=== PATIENT | female | born 1995 | race Caucasian/White ===

== ENCOUNTER → 2019-08-17 17:54 | Outpatient (BNVA) | payer SELFPAY | PROVIDERS: Visit Provider Nurse Practitioner | DX: R35.0 Frequency of micturition (principal); Z20.2 Contact with and (suspected) exposure to infections with a predominantly sexual mode of transmission | CPT/HCPCS: 81000; 87491; 87591; 87661 ==

== ENCOUNTER → 2019-09-21 12:34 | Outpatient (BNVA) | payer SELFPAY | PROVIDERS: Visit Provider Nurse Practitioner Family | DX: Z20.2 Contact with and (suspected) exposure to infections with a predominantly sexual mode of transmission (principal) | CPT/HCPCS: 87491; 87591 ==

== ENCOUNTER → 2019-12-06 09:50 | Outpatient (BNVA) | payer SELFPAY | PROVIDERS: Visit Provider Internal Medicine | DX: E03.9 Hypothyroidism, unspecified (principal) | CPT/HCPCS: 99203 ==

== ENCOUNTER 2021-05-31 06:33 | Outpatient (CLI) | payer OTHER, SELFPAY ==
--- NOTE | 2021-05-31 07:00 | US_ITS ---
WS: [id number] THYROID ULTRASOUND HISTORY: thyroid nodule COMPARISON: None available. Right lobe: 1.6 cm x 1.5 cm x 5.4 cm (w x ap x l). Volume: 6.6 cm3. RIGHT thyroid lobe is slightly larger than the LEFT. No masses or abnormal echogenicity. No echogenic foci or mass. Left lobe: 1.1 cm x 1.3 cm x 4.9 cm (w x ap x l). Volume: 3.5 cm3. Normal size and echotexture. No significant or dominant nodules are present. Isthmus: 0.3 cm. US/US thyroid [id number] IMPRESSION: Unremarkable thyroid ultrasound. No mass or echogenic focus.
== END 2021-05-31 06:34 | disposition home or self-care (01) ==
LOC: RAD 06:34
PROVIDERS: Visit Provider Internal Medicine
DX: E04.1 Nontoxic single thyroid nodule (principal); E03.9 Hypothyroidism, unspecified
CPT/HCPCS: 76536

== ENCOUNTER → 2021-12-31 15:40 | Outpatient (BNVA) | payer OTHER, SELFPAY | PROVIDERS: Visit Provider Internal Medicine | DX: E03.9 Hypothyroidism, unspecified (principal) | CPT/HCPCS: 84439; 84443 ==

== ENCOUNTER → 2022-06-16 08:00 | Outpatient (BNVA) | payer OTHER, SELFPAY | PROVIDERS: PCP Family Medicine; Visit Provider Obstetrics & Gynecology | DX: Z32.00 Encounter for pregnancy test, result unknown (principal); Z32.01 Encounter for pregnancy test, result positive | CPT/HCPCS: 81025 ==

== ENCOUNTER → 2022-07-11 13:02 | Outpatient (BNVA) | payer OTHER, SELFPAY | PROVIDERS: PCP Family Medicine; Visit Provider Obstetrics & Gynecology | DX: Z34.00 Encounter for supervision of normal first pregnancy, unspecified trimester (principal) | CPT/HCPCS: 80307; 84315; 87086 ==

== ENCOUNTER → 2022-07-25 12:33 | Outpatient (BNVA) | payer OTHER, SELFPAY | PROVIDERS: PCP Family Medicine; Visit Provider Obstetrics & Gynecology | DX: Z34.00 Encounter for supervision of normal first pregnancy, unspecified trimester (principal); Z3A.12 12 weeks gestation of pregnancy | CPT/HCPCS: 76801; 87491; 87591; 87661; 88175 ==

== ENCOUNTER → 2022-07-31 08:15 | Outpatient (BNVA) | payer OTHER, SELFPAY | PROVIDERS: PCP Family Medicine; Visit Provider Obstetrics & Gynecology | DX: Z34.00 Encounter for supervision of normal first pregnancy, unspecified trimester (principal) | CPT/HCPCS: 84443; 85027; 86592; 86762; 86803; 86850; 86900; 87340; 87806 ==

== ENCOUNTER → 2022-08-22 12:54 | Outpatient (BNVA) | payer OTHER, SELFPAY | PROVIDERS: PCP Family Medicine; Visit Provider Obstetrics & Gynecology | DX: Z34.90 Encounter for supervision of normal pregnancy, unspecified, unspecified trimester (principal) | CPT/HCPCS: 84315; 87086 ==

== ENCOUNTER → 2022-09-17 14:07 | Outpatient (BNVA) | payer OTHER, SELFPAY | PROVIDERS: PCP Family Medicine; Visit Provider Obstetrics & Gynecology | DX: Z34.92 Encounter for supervision of normal pregnancy, unspecified, second trimester (principal); Z3A.20 20 weeks gestation of pregnancy | CPT/HCPCS: 76805 ==

== ENCOUNTER 2022-09-24 09:58 | Outpatient (CLI) | payer OTHER, SELFPAY ==
[2022-09-24 10:45] LABS: Free T4 Free Thyroxine 1.05 ng/dL (0.82-1.77)
[2022-09-24 13:15] LABS: Thyroid Stimulating Hormone 1.57 uIU/mL (0.27-4.20)
== END 2022-09-24 09:59 | disposition home or self-care (01) ==
PROVIDERS: PCP Family Medicine; Visit Provider Internal Medicine
DX: E03.9 Hypothyroidism, unspecified (principal)
CPT/HCPCS: 36415; 84315; 84439; 84443

== ENCOUNTER → 2022-10-15 15:43 | Outpatient (BNVA) | payer OTHER, SELFPAY | PROVIDERS: PCP Family Medicine; Visit Provider Obstetrics & Gynecology | DX: Z34.92 Encounter for supervision of normal pregnancy, unspecified, second trimester (principal); Z3A.24 24 weeks gestation of pregnancy | CPT/HCPCS: 76816 ==

== ENCOUNTER → 2022-11-11 14:30 | Outpatient (BNVA) | payer OTHER, SELFPAY | PROVIDERS: PCP Family Medicine; Visit Provider Obstetrics & Gynecology | DX: Z34.00 Encounter for supervision of normal first pregnancy, unspecified trimester (principal) | CPT/HCPCS: 82950; 84315; 85025 ==

== ENCOUNTER → 2022-11-25 08:00 | Outpatient (BNVA) | payer OTHER, SELFPAY | PROVIDERS: PCP Family Medicine; Visit Provider Obstetrics & Gynecology | DX: Z34.00 Encounter for supervision of normal first pregnancy, unspecified trimester (principal) | CPT/HCPCS: 82951; 82952; 84315 ==

== ENCOUNTER → 2023-01-06 15:39 | Outpatient (BNVA) | payer OTHER, SELFPAY | PROVIDERS: PCP Family Medicine; Visit Provider Obstetrics & Gynecology | DX: Z34.00 Encounter for supervision of normal first pregnancy, unspecified trimester (principal) | CPT/HCPCS: 84315; 87081 ==

== ENCOUNTER → 2023-01-20 08:00 | Outpatient (BNVA) | payer OTHER, SELFPAY | PROVIDERS: PCP Family Medicine; Visit Provider Obstetrics & Gynecology | DX: Z34.00 Encounter for supervision of normal first pregnancy, unspecified trimester (principal) | CPT/HCPCS: 81000 ==

== ENCOUNTER 2023-01-29 10:23 | Outpatient (CLI) | payer OTHER, SELFPAY ==
[2023-01-29 11:37] LABS: Thyroid Stimulating Hormone 1.63 uIU/mL (0.27-4.20)
== END 2023-01-29 10:24 | disposition home or self-care (01) ==
LOC: LAB 10:23
PROVIDERS: PCP Family Medicine; Visit Provider Internal Medicine
DX: E03.9 Hypothyroidism, unspecified (principal)
CPT/HCPCS: 36415; 84439; 84443

== ENCOUNTER 2023-02-01 13:49 | Outpatient (CLI) | payer OTHER, SELFPAY ==
[2023-02-01 13:50] VITALS: BMI 29.8
[2023-02-01 13:55] VITALS: BP 124/69; PULSE 83
[2023-02-01 14:18] VITALS: RESP 15
[2023-02-01 14:25] VITALS: BP 111/59; PULSE 85
[2023-02-01 14:42] VITALS: BP 111/59; PULSE 85
== END 2023-02-01 14:42 | disposition home or self-care (01) ==
LOC: OPOB 13:50 → OBGYN 13:51
PROVIDERS: PCP Family Medicine; Visit Provider Obstetrics & Gynecology
DX: O36.8190 Decreased fetal movements, unspecified trimester, not applicable or unspecified (principal); Z3A.00 Weeks of gestation of pregnancy not specified
CPT/HCPCS: 59025; 99211

== ENCOUNTER 2023-02-10 08:16 | Inpatient (IN) | payer OTHER, SELFPAY ==
[2023-02-10] VITALS (50 sets, daily range): BP systolic 93–121; BP diastolic 55–85; PULSE 69–139; RESP 16–18; TEMP 36–37.1; O2SAT 98–100; BMI 29.8
--- NOTE | 2023-02-10 09:10 | P.HP_ITS ---
Providers/Chief Complaint 2 Admitting Physician: Lucio Ceballos MD Primary PET CARE ASSISTANT: Lucio Ceballos MD Primary Care Provider: Suha Blackburn MD Chief Complaint: induction of labor at 41 weeks gestation HPI PET CARE ASSISTANT History of Present Illness 27 y.o. G1 EDC February 02, 2023 At 41 w 1 d No complications Admitted for induction of labor No c/o + active movements Present Details : 1 Para: 0 Labs Rubella: Immune RPR: Negative GBS: Negative Medications/Allergies Home Medications Medication Instructions Recorded Confirmed Last Taken Type buspirone 5 mg tablet 5 mg PO BID PRN anxiety #60 tabs 10/02/22 02/03/23 Unknown Rx prenat.vits,stacey,bsi-vbdr-lcuao 1 tab PO DAILY #30 tabs 10/22/22 02/03/23 Unknown Rx levothyroxine 25 mcg tablet 25 mcg PO DAILY 30 days #30 tabs 12/25/22 02/03/23 Unknown Rx Allergies Allergy/AdvReac Type Severity Reaction Status Date / Time No Known Allergies Allergy Verified 02/03/23 11:23 PFSH PET CARE ASSISTANT 2 PFSH: Medical History Psychiatric care History of eating disorder Hypothyroidism Surgical History No history of previous surgery Family History Mother No problems noted. Denies family history of Colon cancer Ovarian cancer Diabetes Heart disease Hypercholesteremia Breast cancer Hypertension Uterine cancer Thyroid disease Stroke Social History Smoking and tobacco/nicotine status: never used tobacco/nicotine Alcohol intake: never History History History 2 1 Term 0 Miscarriages/Ectopic Living Children Care ALYSHA Calculator 2 Estimated Delivery Date Method Current WG Current Estimate 02/02/23 LMP (Certain) 41w 2d Vitals/I&O/Wt Last Vital Signs Temp 98.1 F 02/11/23 01:05 Pulse 90 02/11/23 01:05 Resp 18 02/11/23 01:05 BP 101/66 02/11/23 01:05 Pulse Ox 98 02/11/23 01:05 O2 Del Method Room Air 02/11/23 01:05 02/10/23 02/10/23 02/11/23 14:59 22:59 06:59 Intake Total 2676.29 / 2676.29 Output Total 425 / 425 Balance 2251.29 / 2251.29 Weight last 48 hrs Weight 185 lb Physical Exam 2 Narrative: Weight 184 lbs; 5?6? VS normal Comfortable Lungs: clear Cor: RRR FH 38 cm, cephalic FHTs normal Cx: 1 cm / 50% / -4 / posterior Ext: no edema External monitor: heart tracing good variability, + accelerations Urinary Catheter Management: Silva: Cath Placed During This Visit: yes, but has since been removed by the nurse Reason for Continuing Indwelling Catheter: Decision to DC Catheter Urinary Catheter Date of Insertion: 02/10/23 Urinary Catheter Time of Insertion: 19:30 Date Urinary Catheter Removed: 02/10/23 Time Urinary Catheter Discontinued: 21:50 Data 02/10/23 08:50 Other data: GBS negative Results Labs OB ([facility]): 2 Obstetrics US 10/15/22 Blood Type A Positive 02/10/23 Antibody Screen Negative 02/10/23 Hct 38.5 % (36-47) 02/10/23 Hgb 12.90 g/dL (11.27-16.99) 02/10/23 Rho(D) Type Rh positive 02/10/23 Plt Count 227 10^3/cmm (157-399) 02/10/23 Hep Bs Antigen Non-reactive (Nonreactive) 07/31/22 Hepatitis C Antibody Non-reactive (Nonreactive) 07/31/22 Rubella IgG Antibody 123.5 IU/mL (0.0-10.0) H 07/31/22 RPR Nonreactive (Nonreactive) 07/31/22 HIV 1&2 Ab & HIV 1 Ag Non-reactive (Non-Reactiv) 07/31/22 TSH 1.63 uIU/mL (0.27-4.20) 01/29/23 Free T4 1.10 ng/dL (0.82-1.77) 01/29/23 Cystic Fibrosis Screen Negative 07/31/22 Gest Glucose Tolerance mg/dL 11/25/22 HCG, Qual Positive (Negative) H 06/16/22 Urine Opiates Screen Negative ng/mL (Negative) 07/11/22 Ur Barbiturates Screen Negative ng/mL (Negative) 07/11/22 Ur Phencyclidine Scrn Negative ng/mL (Negative) 07/11/22 Ur Amphetamines Screen Negative ng/mL (Negative) 07/11/22 U Benzodiazepines Scrn Negative ng/mL (Negative) 07/11/22 Urine Cocaine Screen Negative ng/mL (Negative) 07/11/22 U Marijuana (THC) Screen Negative ng/mL (Negative) 07/11/22 Micro Urine Specimen 08/22/22 Pap Smear Interpret See note 07/25/22 A&P Assessment and plan (1) : 41 w 1 d (2) Encounter for induction of labor: Admit for induction of labor Plan Cytotec 25 ug intravaginal Attestations 2 Medical Necessity Statement*: patient at 41 w 1 d, admitted for induction of labor Coding Level of Care Code Acute Code for Chg Fwd Diagnoses Z34.90 Encounter for induction of labor Z34.90 Time Spent (min) 30
[2023-02-10] MEDS: miSOPROStol 100 mcg tablet 25 MCG VAGINAL ×2 (09:17→13:35)
[2023-02-10 09:23] LABS: Basophils % 0.2 %; Eosinophils # 0.1 10^3/uL (0.0-0.8); Eosinophils % 0.8 %; Hematocrit 38.5 % (36-47); Lymphocytes # 1.9 10^3/uL (0.8-4.8); Lymphocytes % 18.9 %; Mean Corpuscular HGB Conc 33.5 g/dL (30-55); Mean Corpuscular Hemoglobin 30.6 pg (27-33); Mean Corpuscular Volume 91.4 fl (85-98); Mean Platelet Volume 10.8 fL (7.4-10.4); Monocytes # 0.7 10^3/uL (0.2-0.9); Neutrophils # 7.35 10^3/uL (1.8-7.7); Neutrophils % 71.9 %; Nucleated Red Blood Cells % 0 %; Platelet Count 227 10^3/cmm (157-399); Red Blood Count 4.21 10^6/uL (3.85-5.65); Red Cell Distribution Width 13.4 % (12.1-15.1); White Blood Count 10.21 10^3/uL (3.29-11.43)
--- NOTE | 2023-02-10 17:05 | P.PN_ITS ---
WOOD TYPE FINISHER Subjective 2 Subjective: Interval history: Fetus reassuring Received two doses of Cytotec 25 ug intravaginal SROM, clear fluid Cx: 1 ? 2 cm Labor: Station: +1 Amniotic Membrane Status: Ruptured Monitor Mode: External Contraction Pattern: Regular Status: Category I Vitals/I&O/Wt Last Vital Signs Temp 98.1 F 02/11/23 01:05 Pulse 90 02/11/23 01:05 Resp 18 02/11/23 01:05 BP 101/66 02/11/23 01:05 Pulse Ox 98 02/11/23 01:05 O2 Del Method Room Air 02/11/23 01:05 02/10/23 02/10/23 02/11/23 14:59 22:59 06:59 Intake Total 2676.29 / 2676.29 Output Total 425 / 425 Balance 2251.29 / 2251.29 Weight last 48 hrs Weight 185 lb Physical Exam 2 Urinary Catheter Management: Silva: Cath Placed During This Visit: yes, but has since been removed by the nurse Reason for Continuing Indwelling Catheter: Decision to DC Catheter Urinary Catheter Date of Insertion: 02/10/23 Urinary Catheter Time of Insertion: 19:30 Date Urinary Catheter Removed: 02/10/23 Time Urinary Catheter Discontinued: 21:50 Data 02/10/23 08:50 Attestations 2 Medical Necessity Statement*: patient at 41 w 1 d, admitted for induction of labor Coding Level of Care Code Acute Code for Chg Fwd Time Spent (min) 20
[2023-02-10] MEDS: fentaNYL 50 mcg/mL INJ 2mL IVP (17:34)
[2023-02-10] MEDS: lactated ringers 1,000 ML 999 ML IV ×2 (17:35→18:26)
--- NOTE | 2023-02-10 18:36 | P.ANESASSM_ITS ---
Pre-Anesthetic Assessment Height/Weight: Height 1.68 m Weight 83.915 kg Temp Pulse Resp BP Pulse Ox O2 Del Method 97.2 F L 90 17 113/63 98 Room Air 02/10/23 16:43 02/10/23 18:33 02/10/23 17:34 02/10/23 18:33 02/10/23 18:31 02/10/23 09:31 Preop Diagnosis: Labor pain LONA Was Beta Rae taken within 24 hours: N/A Was Clonidine taken within 24 hours: N/A Social No alcohol and No tobacco Exam alert, oriented x 3, clear to auscultation bilaterally and regular rate & rhythm Airway Submandibular: within normal limits Cervical ROM: within normal limits Mallampati: Class II Dentition: full History/ROS No significant history except as noted and No significant complaints Pulmonary None reported CV/HEM None reported None reported Hepatic None reported GI None reported Metabolic Thyroid Disease [facility] [place] None reported Neuropsych Anxiety Anesthetic Plan ASA status: 2 Anesthesia: Anesthesia Evaluation and Regional (specify below) (LONA) Risk of > 500 ml blood loss (7ml/kg in children): No Medications/Allergies Home Medications Medication Instructions Recorded Confirmed Last Taken Type buspirone 5 mg tablet 5 mg PO BID PRN anxiety #60 tabs 10/02/22 02/03/23 Unknown Rx prenat.vits,stacey,qbc-mvju-rqnlp 1 tab PO DAILY #30 tabs 10/22/22 02/03/23 Unknown Rx levothyroxine 25 mcg tablet 25 mcg PO DAILY 30 days #30 tabs 12/25/22 02/03/23 Unknown Rx Allergies Allergy/AdvReac Type Severity Reaction Status Date / Time No Known Allergies Allergy Verified 02/03/23 11:23 Current Medications Generic Name Dose Route Start Last Admin Trade Name Freq PRN Reason Stop Dose Admin Fentanyl 25 - 100 mcg 02/10/23 08:18 02/10/23 17:34 Fentanyl 50 Mcg/Ml Inj 2ml IVP 25 mcg Q1H PRN Administration SEVERE PAIN Lactated Ringer's 1,000 mls @ 999 mls/hr 02/10/23 17:17 02/10/23 18:26 Lactated Ringers IV 999 mls/hr .Q1H1M PRN Administration See label comments PFSH Anesthesia Medical History Psychiatric care History of eating disorder Hypothyroidism Surgical History No history of previous surgery Family History Mother No problems noted. Denies family history of Colon cancer Ovarian cancer Diabetes Heart disease Hypercholesteremia Breast cancer Hypertension Uterine cancer Thyroid disease Stroke Social History Smoking and tobacco/nicotine status: never used tobacco/nicotine Alcohol intake: never Female Reproductive History : 1 Data Anesthesia 02/10/23 08:50 Short CBC 02/10/23 Range/Units 08:50 WBC 10.21 (3.29-11.43) 10^3/uL Hgb 12.90 (11.27-16.99) g/dL Hct 38.5 (36-47) % MCV 91.4 (85-98) fl Plt Count 227 (157-399) 10^3/cmm Neut % (Auto) 71.9 % Neut # (Auto) 7.35 (1.8-7.7) 10^3/uL Blood Bank 02/10/23 08:50 Blood Type A Positive Rho(D) Type Rh positive Antibody Screen Negative Cardiac Studies: 2 No Data to Display
--- NOTE | 2023-02-10 18:38 | ANES.PROC ---
Anesthesia Procedures Procedure/Date: 02/10/23 Epidural: Time Out Performed: Yes Consents Signed: Procedure Consent Consent: requested by attending/covering physician and from patient Lumbar Level: L3-L4 Epidural position: sitting Epidural procedure: sterile prep of area, 1% lidocaine to numb the area, 18 g needle, neg for paresthesia, test dose given, 1.5% xylocaine 1:200k epi (5cc), 0.2% Ropivacaine bolus ml (4cc and Fentanyl 100 mcg), placed PCEA, no systemic response, sterile dressing applied, L.U.D. no apparent complications and 0.2% Ropiavacaine @ mls/hr (10cc/hour) Additional Comments: AMY at 6cm. Cath placed 2.5cm into epidural space. Pt tolerated well
[2023-02-10] MEDS: ROPivacaine syringe 100 MG/50 ML SYRINGE 10 MG EPIDURAL (18:55)
--- NOTE | 2023-02-10 21:45 | P.PN_ITS ---
DIRECTOR OF CATEGORY MANAGEMENT Subjective 2 Subjective: Interval history: Fetus reassuring Comfortable with epidural Cx: 10 cm / +1 station Plan start pushing efforts Labor: Station: +1 Amniotic Membrane Status: Ruptured Monitor Mode: External Contraction Pattern: Regular Status: Category I Vitals/I&O/Wt Last Vital Signs Temp 98.1 F 02/11/23 01:05 Pulse 90 02/11/23 01:05 Resp 18 02/11/23 01:05 BP 101/66 02/11/23 01:05 Pulse Ox 98 02/11/23 01:05 O2 Del Method Room Air 02/11/23 01:05 02/10/23 02/10/23 02/11/23 14:59 22:59 06:59 Intake Total 2676.29 / 2676.29 Output Total 425 / 425 Balance 2251.29 / 2251.29 Weight last 48 hrs Weight 185 lb Physical Exam 2 Urinary Catheter Management: Silva: Cath Placed During This Visit: yes, but has since been removed by the nurse Reason for Continuing Indwelling Catheter: Decision to DC Catheter Urinary Catheter Date of Insertion: 02/10/23 Urinary Catheter Time of Insertion: 19:30 Date Urinary Catheter Removed: 02/10/23 Time Urinary Catheter Discontinued: 21:50 Data 02/10/23 08:50 A&P Assessment and plan (1) : (2) Encounter for induction of labor: Attestations 2 Medical Necessity Statement*: patient at 41 w 1 d, admitted for induction of labor Coding Level of Care Code Acute Code for Chg Fwd Diagnoses Z34.90 Encounter for induction of labor Z34.90 Time Spent (min) 15
--- NOTE | 2023-02-10 21:50 | P.PN_ITS ---
BLOW MOLD MACHINE OPERATOR Subjective 2 Subjective: Interval history: , vigorous female infant Cord gases and blood obtained Normal placenta and cord Second-degree perineal laceration repaired EBL: 300 cc No complications Labor: Station: +1 Amniotic Membrane Status: Ruptured Monitor Mode: External Contraction Pattern: Regular Status: Category I Vitals/I&O/Wt Last Vital Signs Temp 98.1 F 02/11/23 01:05 Pulse 90 02/11/23 01:05 Resp 18 02/11/23 01:05 BP 101/66 02/11/23 01:05 Pulse Ox 98 02/11/23 01:05 O2 Del Method Room Air 02/11/23 01:05 02/10/23 02/10/23 02/11/23 14:59 22:59 06:59 Intake Total 2676.29 / 2676.29 Output Total 425 / 425 Balance 2251.29 / 2251.29 Weight last 48 hrs Weight 185 lb Physical Exam 2 Urinary Catheter Management: Silva: Cath Placed During This Visit: yes, but has since been removed by the nurse Reason for Continuing Indwelling Catheter: Decision to DC Catheter Urinary Catheter Date of Insertion: 02/10/23 Urinary Catheter Time of Insertion: 19:30 Date Urinary Catheter Removed: 02/10/23 Time Urinary Catheter Discontinued: 21:50 Data 02/10/23 08:50 A&P Assessment and plan (1) Vaginal delivery: (2) Second degree perineal laceration: Attestations 2 Medical Necessity Statement*: patient at 41 w 1 d, delivered vaginally Coding Level of Care Code Acute Code for Chg Fwd Diagnoses Vaginal delivery O80 Second degree perineal laceration O70.1 Time Spent (min) 60
--- NOTE | 2023-02-10 21:55 | PM.DELIVERY ---
Delivery Note: Date of delivery: February 11, 2023 Pre-delivery diagnoses: 41 w 1 d induction of labor Post-delivery diagnoses: 41 w 1 d induction of labor vaginal delivery second-degree perineal laceration repaired Procedure: induction of labor vaginal delivery second-degree perineal laceration repaired Op report anesthesia: Epidural Delivering Physician: Lucio Ceballos MD Estimated blood loss (mL): 300 Findings: , vigorous female infant Cord gases and blood obtained Normal placenta and cord Second-degree perineal laceration repaired EBL: 300 cc No complications Pre-Delivery Course: normal labor course Delivery: vaginal Post-Delivery Status: good History History History 1 Term 0 Miscarriages/Ectopic Living Children A&P Assessment and plan (1) Vaginal delivery: (2) Second degree perineal laceration: Coding Level of Care Code Acute Code for Chg Fwd Diagnoses Vaginal delivery O80 Second degree perineal laceration O70.1 Time Spent (min) 60
[2023-02-10] MEDS: oxytocin 30 UNIT/500 ML BAG 600 UNIT IV (22:07)
--- NOTE | 2023-02-10 23:25 | P.PN_ITS ---
GLEASON OPERATOR Subjective 2 Subjective: Interval history: Called to examine patient with moderate vaginal bleeding Small amount of bleeding noted from perineum and small trickle from uterine cavity One additional 2-O chromic applied to perineal repair Fundal massage applied No further bleeding noted. Labor: Station: +1 Amniotic Membrane Status: Ruptured Monitor Mode: External Contraction Pattern: Regular Status: Category I Vitals/I&O/Wt Last Vital Signs Temp 98.1 F 02/11/23 01:05 Pulse 90 02/11/23 01:05 Resp 18 02/11/23 01:05 BP 101/66 02/11/23 01:05 Pulse Ox 98 02/11/23 01:05 O2 Del Method Room Air 02/11/23 01:05 02/10/23 02/10/23 02/11/23 14:59 22:59 06:59 Intake Total 2676.29 / 2676.29 Output Total 425 / 425 Balance 2251.29 / 2251.29 Weight last 48 hrs Weight 185 lb Physical Exam 2 Urinary Catheter Management: Silva: Cath Placed During This Visit: yes, but has since been removed by the nurse Reason for Continuing Indwelling Catheter: Decision to DC Catheter Urinary Catheter Date of Insertion: 02/10/23 Urinary Catheter Time of Insertion: 19:30 Date Urinary Catheter Removed: 02/10/23 Time Urinary Catheter Discontinued: 21:50 Data 02/10/23 08:50 A&P Assessment and plan (1) Vaginal delivery: (2) Second degree perineal laceration: Attestations 2 Medical Necessity Statement*: patient s/p vaginal delivery Coding Level of Care Code Acute Code for Chg Fwd Diagnoses Vaginal delivery O80 Second degree perineal laceration O70.1 Time Spent (min) 30
[2023-02-10] MEDS: lidocaine 2% INJ 20 mL INJECTION (23:51)
[2023-02-11] VITALS (9 sets, daily range): BP systolic 100–117; BP diastolic 55–72; PULSE 76–102; RESP 15–18; TEMP 36.6–36.9; O2SAT 96–98
[2023-02-11] MEDS: acetaminophen 325 mg Tablet 650 MG PO (01:07)
[2023-02-11] MEDS: benzocaine-menthol 78 gm Canister 1 SPRAY TOPICAL (01:07)
[2023-02-11] MEDS: lanolin oint 7 gm 1 APPLIC TOPICAL (01:08)
--- NOTE | 2023-02-11 07:27 | ANE.PACU2 ---
Inpatient post-anesthesia follow up: Airway intact: Yes Vital signs: Temperature 98.0 F Pulse Rate 76 Respiratory Rate 18 Blood Pressure 102/66 Pulse Oximetry 96 Oxygen Delivery Me thod Room Air Oxygen Flow Rate Fraction of Inspir ed Oxygen Hydration adequate: Yes Nausea and vomiting: No Pain level: 2 Mental status: Baseline Additional Comments: Anes start 02/10/23 7989 Anes end 02/10/23 9224
[2023-02-11] MEDS: ibuprofen 800 mg tablet PO ×3 (08:59→20:21)
[2023-02-11] MEDS: docusate sodium 100 mg Capsule PO ×2 (08:59→18:19)
[2023-02-11] MEDS: prenatal vitamin Capsule 1 CAP PO (08:59)
[2023-02-11 10:53] LABS: Hematocrit 36.3 % (36-47); Mean Corpuscular HGB Conc 33.1 g/dL (30-55); Mean Corpuscular Volume 90.8 fl (85-98); Mean Platelet Volume 10.6 fL (7.4-10.4); Platelet Count 211 10^3/cmm (157-399); Red Cell Distribution Width 13.2 % (12.1-15.1); White Blood Count 15.99 10^3/uL (3.29-11.43)
--- NOTE | 2023-02-11 22:45 | P.PN_ITS ---
PUZZLE ASSEMBLER Subjective 2 Subjective: Interval history: no c/o no pain, bleeding eating, voiding, ambulating well caring for without any problems patient wants to go home Labor: Station: +1 Amniotic Membrane Status: Ruptured Monitor Mode: External Contraction Pattern: Regular Status: Category I Vitals/I&O/Wt Last Vital Signs Temp 97.9 F 02/11/23 23:00 Pulse 83 02/11/23 23:00 Resp 15 02/11/23 23:00 BP 113/70 02/11/23 23:00 Pulse Ox 97 02/11/23 23:00 O2 Del Method Room Air 02/11/23 16:05 Physical Exam 2 Narrative: afebrile, VS? normal Comfortable, awake, alert Lungs:?? clear Cor:? RRR Abd:? soft, nontender.? Fundus firm. Ext:? no edema;? nontender Urinary Catheter Management: Silva: Cath Placed During This Visit: yes, but has since been removed by the nurse Reason for Continuing Indwelling Catheter: Decision to DC Catheter Urinary Catheter Date of Insertion: 02/10/23 Urinary Catheter Time of Insertion: 19:30 Date Urinary Catheter Removed: 02/10/23 Time Urinary Catheter Discontinued: 21:50 Data 02/11/23 10:25 A&P Assessment and plan (1) Vaginal delivery: PPD #1 patient wants to go home plan discharge home f/u in one week instructions and precautions given (2) Second degree perineal laceration: Attestations 2 Medical Necessity Statement*: patient s/p vaginal delivery, plan discharge today Coding Level of Care Code Acute Code for Chg Fwd Diagnoses Vaginal delivery O80 Second degree perineal laceration O70.1 Time Spent (min) 20
--- NOTE | 2023-02-11 22:50 | P.DS_ITS ---
Discharge Providers PHOTOGRAPH RETOUCHER Date of Admission: 02/10/23 08:16 Date of Discharge: 02/11/23 Attending Provider at Admission: Lucio Ceballos MD Attending Provider at Discharge: Lucio Ceballos MD Consults: none Primary PHOTOGRAPH RETOUCHER: Lucio Ceballos MD Primary Care Provider: Suha Blackburn MD Diagnoses at Discharge Discharge Diagnosis (1) Vaginal delivery: Details from hospital stay: normal labor course uncomplicated period Status: Acute (2) Second degree perineal laceration: Details from hospital stay: repaired in good condition Status: Acute Reason for Visit Reason for Visit: induction of labor at 41 weeks gestation Brief History: 27 y.o. at 41 w 1 d, admitted for labor induction Hospital Course Hospital Course patient received two doses of cytotec 25 ug intravaginal progressed to complete s/p vaginal delivery with repair of second-degree perineal laceration Information Peripartum Data: Infant Delivery Method: Vaginal Laceration description: Perineal - 2nd Degree Episiotomy description: None complications: none Physical Exam Narrative: afebrile, VS? normal Comfortable, awake, alert Lungs:?? clear Cor:? RRR Abd:? soft, nontender.? Fundus firm. Ext:? no edema;? nontender Urinary Catheter Management: Silva: Cath Placed During This Visit: yes, but has since been removed by the nurse Reason for Continuing Indwelling Catheter: Decision to DC Catheter Urinary Catheter Date of Insertion: 02/10/23 Urinary Catheter Time of Insertion: 19:30 Date Urinary Catheter Removed: 02/10/23 Time Urinary Catheter Discontinued: 21:50 History History History 1 Term 0 Miscarriages/Ectopic Living Children Discharge Data Studies Completed and Pending Laboratory Results WBC 15.99 10^3/uL (3.29-11.43) H 02/11/23 10:25 RBC 4.00 10^6/uL (3.85-5.65) 02/11/23 10:25 Hgb 12.00 g/dL (11.27-16.99) 02/11/23 10:25 Hct 36.3 % (36-47) 02/11/23 10:25 MCV 90.8 fl (85-98) 02/11/23 10:25 MCH 30.0 pg (27-33) 02/11/23 10:25 MCHC 33.1 g/dL (30-55) 02/11/23 10:25 RDW 13.2 % (12.1-15.1) 02/11/23 10:25 Plt Count 211 10^3/cmm (157-399) 02/11/23 10:25 MPV 10.6 fL (7.4-10.4) H 02/11/23 10:25 Neut % (Auto) 71.9 % 02/10/23 08:50 Lymph % (Auto) 18.9 % 02/10/23 08:50 [place] % (Auto) 7.0 % 02/10/23 08:50 Eos % (Auto) 0.8 % 02/10/23 08:50 Baso % (Auto) 0.2 % 02/10/23 08:50 Neut # (Auto) 7.35 10^3/uL (1.8-7.7) 02/10/23 08:50 Lymph # (Auto) 1.9 10^3/uL (0.8-4.8) 02/10/23 08:50 [place] # (Auto) 0.7 10^3/uL (0.2-0.9) 02/10/23 08:50 Eos # (Auto) 0.1 10^3/uL (0.0-0.8) 02/10/23 08:50 Baso # (Auto) 0.0 10^3/uL (0.0-0.1) 02/10/23 08:50 Nucleated RBC % (auto) 0 % 02/10/23 08:50 Nucleated RBCs # 0.0 /100WBC 02/10/23 08:50 Blood Type A Positive 02/10/23 08:50 Rho(D) Type Rh positive 02/10/23 08:50 Antibody Screen Negative 02/10/23 08:50 Procedures Performed labor induction vaginal delivery repair of second-degree perineal laceration Vitals Last Vital Signs Temp 97.9 F 02/11/23 23:00 Pulse 83 02/11/23 23:00 Resp 15 02/11/23 23:00 BP 113/70 02/11/23 23:00 Pulse Ox 97 02/11/23 23:00 O2 Del Method Room Air 02/11/23 16:05 Results Labs OB ([facility]): Obstetrics US 10/15/22 Blood Type A Positive 02/10/23 Antibody Screen Negative 02/10/23 Hct 36.3 % (36-47) 02/11/23 Hgb 12.00 g/dL (11.27-16.99) 02/11/23 Rho(D) Type Rh positive 02/10/23 Plt Count 211 10^3/cmm (157-399) 02/11/23 Hep Bs Antigen Non-reactive (Nonreactive) 07/31/22 Hepatitis C Antibody Non-reactive (Nonreactive) 07/31/22 Rubella IgG Antibody 123.5 IU/mL (0.0-10.0) H 07/31/22 RPR Nonreactive (Nonreactive) 07/31/22 HIV 1&2 Ab & HIV 1 Ag Non-reactive (Non-Reactiv) 07/31/22 TSH 1.63 uIU/mL (0.27-4.20) 01/29/23 Free T4 1.10 ng/dL (0.82-1.77) 01/29/23 Cystic Fibrosis Screen Negative 07/31/22 Gest Glucose Tolerance mg/dL 11/25/22 HCG, Qual Positive (Negative) H 06/16/22 Urine Opiates Screen Negative ng/mL (Negative) 07/11/22 Ur Barbiturates Screen Negative ng/mL (Negative) 07/11/22 Ur Phencyclidine Scrn Negative ng/mL (Negative) 07/11/22 Ur Amphetamines Screen Negative ng/mL (Negative) 07/11/22 U Benzodiazepines Scrn Negative ng/mL (Negative) 07/11/22 Urine Cocaine Screen Negative ng/mL (Negative) 07/11/22 U Marijuana (THC) Screen Negative ng/mL (Negative) 07/11/22 Micro Urine Specimen 08/22/22 Pap Smear Interpret See note 07/25/22 Discharge Plan Discharge Patient Disposition: Home Condition: Stable Prescriptions: Continued prenat.vits,stacey,[id number]-[id number] Tablet 1 tab PO DAILY Qty: 30 12RF buspirone 5 mg tablet 5 mg PO BID PRN (Reason: anxiety) Qty: 60 1RF levothyroxine 25 mcg tablet 25 mcg PO DAILY 30 Days Qty: 30 0RF Discharge Orders: Discharge Order (Routine); Ordered 02/11/23 Ordered By: Lucio Ceballos Referrals: Lucio Ceballos MD [Physician] - 6 Weeks (* Please call first thing tomorrow morning to make your appointment.) Discharge Diet: Usual diet Discharge Activity: Increase activity as tolerated Patient Instructions: Depression (DC), Bleeding (DC), Preeclampsia and Eclampsia After Delivery (GEN), Hemorrhage (DC), OB Discharge Report, OB Food/Drug Interaction Guide, Opioid Safety, OB Home Care, OB Proud Parent Packet, OB Vaginal Deliveries - [facility] Discharge Attestations PHOTOGRAPH RETOUCHER 2 Time Spent in Discharge Care*: less than 30 min Coding Level of Care Code Acute Code for Chg Fwd Diagnoses Vaginal delivery O80 Second degree perineal laceration O70.1 Time Spent (min) 20
== END 2023-02-11 23:15 | disposition home or self-care (01) | DRG 807 ==
LOC: OPOB 11:52 → OBGYN 11:52
PROVIDERS: Admitting Provider Obstetrics & Gynecology; PCP Family Medicine; Visit Provider Obstetrics & Gynecology
DX: O48.0 Post-term pregnancy (principal); Z37.0 Single live birth; Z3A.41 41 weeks gestation of pregnancy; O99.284 Endocrine, nutritional and metabolic diseases complicating childbirth; E03.9 Hypothyroidism, unspecified; O70.1 Second degree perineal laceration during delivery
CPT/HCPCS: 36415; 51702; 59025; 59409; 83986; 85025; 85027; 86850; 86900; 96374; 96376; 98960; 99211; J2590; J2795; J3010; J7120

== ENCOUNTER → 2023-07-13 10:14 | Outpatient (BNVA) | payer OTHER, SELFPAY | PROVIDERS: PCP Family Medicine; Visit Provider Family Medicine | DX: E03.9 Hypothyroidism, unspecified (principal) | CPT/HCPCS: 84443 ==

== ENCOUNTER → 2023-11-16 14:13 | Outpatient (BNVA) | payer OTHER, SELFPAY | PROVIDERS: PCP Family Medicine; Visit Provider Family Medicine | DX: R21 Rash and other nonspecific skin eruption (principal); E03.9 Hypothyroidism, unspecified; F41.9 Anxiety disorder, unspecified | CPT/HCPCS: 84443; 86038 ==